=== PATIENT | female | born 1985 | race Caucasian/White ===

== ENCOUNTER 2016-08-21 15:30 | Inpatient (IN) | payer MEDICAID ==
[~2016-08-21] VITALS: Ht 172.7 cm; Wt 79.4 kg
--- NOTE | ~2016-08-21 | OR ---
ADMIT: 08/21/2016 RM/LOC: 228 [facility] MR#: [id number] [address] OSMEL BROCK [address] [place] [address] Operative/Delivery Room Report SEX: F AGE: 30 : 1985 SURGERY DATE: 08/22/2016 SURGEON: Lisbeth Mtz MD PROCEDURE: Spontaneous vaginal delivery. PREOPERATIVE DIAGNOSES: 1. Intrauterine at 37 and 0/7th weeks' gestation. 2. Active labor. POSTOP DIAGNOSES: 1. Intrauterine at 37 and 0/7th weeks' gestation. 2. Active labor. FINDINGS: Liveborn male infant, scores 8 at 1 minute, 9 at 5 minutes. Weight 6 pounds 10 ounces. ESTIMATED BLOOD LOSS: 150 mL. ANESTHESIA: Epidural. COMPLICATIONS: None. INDICATIONS FOR PROCEDURE: The patient is, 2, para 0-1-0-1 who presented to Labor and Delivery at 37 and 0/7th weeks' gestation with complaints of contractions. The patient progressed spontaneously through labor to 8 cm dilated. At that point, no further cervical dilation was noted and so Pitocin augmentation of labor was started. The patient then progressed, 9 cm dilated. Artificial rupture of membranes was performed. The patient progressed to completely dilated and pushed, bringing the infant's vertex to the perineum. DESCRIPTION OF PROCEDURE: The patient was noted to be complete and pushing with the infant's vertex at the perineum. The patient pushed and the 's vertex delivered in the LARISSA position over midline. She continued to push and ADMIT: 08/21/2016 RM/LOC: 228 [facility] MR#: [id number] [address] OSMEL BROCK [address] [place] [address] Operative/Delivery Room Report SEX: F AGE: 30 : 1985 the anterior shoulder delivered. The posterior shoulder followed, and the remainder of the delivered without difficulty as well. The infant was dried and handed off to the mother's abdomen where nursing personnel were in attendance. The cord was clamped and cut. There was noted to be a true knot in the umbilical cord. The placenta then delivered intact spontaneously. Twenty units of Pitocin have been placed in IV bag to firm the uterus. The cervix was examined was noted be free of lacerations. The vaginal vault and perineum were examined, there was noted to be a small first degree midline laceration, which was repaired with [id number] stitch of 3-0 Vicryl. The patient tolerated the procedure well. All sponge and needle counts were correct. The patient and her infant recovered in the room in stable condition. Lisbeth Mtz MD/ tiffanie JOB #: [id number] CC: Lisbeth Mtz, Attending Physician Marbin Davis, Family Physician
--- NOTE | ~2016-08-21 | FD ---
ADMIT: 08/21/2016 RM/LOC: 228 [facility] MR#: [id number] [facility] [address] [place] [id number] OSMEL BROCK [address] [place] [address] Final Diagnosis SEX: F AGE: 30 : 1985 ADMISSION DATE: 08/21/2016 DISCHARGE DATE: 08/23/2016 FINAL DIAGNOSIS: Intrauterine at term. PROCEDURE: Spontaneous vaginal delivery. Lisbeth Mtz MD/ carlotta JOB #: [id number] CC: Lisbeth Mtz MD, Attending Physician Marbin Davis MD, Family Physician
[2016-08-24] MEDS ORDERED: PRENATAL VIT1 TAB PO (06:42)
[2016-08-24] MEDS ORDERED: MOTRIN-DPS800 MG PO (06:42)
[2016-08-24] MEDS ORDERED: NIPPLECREAM TP (06:42)
[2016-08-24] MEDS ORDERED: TYLENOL #3 DPS1 TAB PO (06:42)
--- NOTE | 2016-09-25 09:05 | HP ---
ADMIT: 08/21/2016 RM/LOC: 228 [facility] MR#: [id number] [facility] [address] [place], [place] [address] OSMEL BROCK [address] [place], [place] [id number] History and Physical SEX: F AGE: 30 : 1985 DATE OF SERVICE: CHIEF COMPLAINT: Uterine contractions. HISTORY OF PRESENT ILLNESS: The patient is a 30-year-old, G2, P 0-1-0-1, at 37 weeks and 0 days today, the patient presents to Labor and Delivery for complaints of regular contractions. She denies any loss of fluid or vaginal bleeding. She reports good movement. She does have a history of a delivery at 36 weeks and also mentions as a very quick delivery like around 4 to 5 hours. PAST MEDICAL HISTORY: History of delivery at 36 weeks. She also has a low-lying placenta, and she has also had some significant nausea throughout the . PAST SURGICAL HISTORY: Tonsillectomy and wisdom teeth removal. MEDICATIONS: Include: 1. vitamins. 2. Diclegis. ALLERGIES: NONE. FAMILY HISTORY: COPD, asthma, diabetes, and hypertension. SOCIAL HISTORY: She is . No alcohol. No drugs. She is a former smoker. REVIEW OF SYSTEMS: Positive again for the uterine contractions, negative for loss of fluid, vaginal bleeding, and she does report good movement, otherwise. LABS: Diabetic screen was within normal limits. Hepatitis B surface antigen is negative. RPR was nonreactive. Rubella was immune. A positive for blood type. Gonorrhea and Chlamydia negative. HIV was negative. GBS was negative. PHYSICAL EXAMINATION: VITAL SIGNS: Blood pressure is 129/84 with a pulse of 98 to 100. heart tones showed a heart rate of 120s, moderate variability, positive accelerations, no decelerations. Contractions are every 6 to 8 minutes currently. GENERAL: No acute distress. Alert and oriented x3. She is very pleasant. HEENT: Normocephalic and atraumatic. Moist mucous membranes. Extraocular ADMIT: 08/21/2016 RM/LOC: 228 [facility] MR#: [id number] [address] OSMEL BROCK [address] [place] [address] History and Physical SEX: F AGE: 30 : 1985 muscles are intact. Thyroid is nonpalpable. HEART: Regular rate and rhythm. No murmur. LUNGS: Clear to auscultation bilaterally. ABDOMEN: Soft, gravid. NEURO: Cranial nerves II through XII are grossly intact. : Initial check was 4, 80, 0, and membranes are intact. Most recent check shows the patient to be 5, 100, and 0. ASSESSMENT AND PLAN: A 2, para 1 at 37 weeks and 0 days. We will admit the patient to Labor and Delivery. We will augment labor with artificial rupture of membranes. Pitocin as needed. Fetus is overall reassuring. This is a patient of Dr. Mtz. Annamaria Rebolledo MD Resident / Lisbeth Mtz MD / marianol JOB #: [id number] CC: Lisbeth Mtz, Attending Physician Marbin Davis, Family Physician
--- NOTE | 2016-09-25 09:05 | OR ---
ADMIT: 08/21/2016 RM/LOC: 228 [facility] MR#: [id number] [address] OSMEL BROCK [address] [place] [address] Operative/Delivery Room Report SEX: F AGE: 30 : 1985 SURGERY DATE: 08/22/2016 SURGEON: Lisbeth Mtz MD PROCEDURE: Removal of epidural catheter. PROCEDURE IN DETAIL: The patient is a 30-year-old, 2, para 0-1-0-1, who presented to Labor and Delivery at 37 and 0/7th weeks' gestation in active labor. The patient had an epidural placed for pain control during labor. Following spontaneous vaginal delivery, the patient was placed in a sitting position and the patient's epidural catheter was removed without difficulty. The tip was noted to be intact. The patient tolerated the procedure well. Lisbeth Mtz MD/ tiffanie JOB #: [id number] CC: Lisbeth Mtz, Attending Physician Marbin Davis, Family Physician
== END 2016-08-23 12:40 | disposition home or self-care (01) | DRG 775 ==
LOC: BC 15:30 → 2LDRP 15:30 → BC 15:31 → 2LDRP 15:31 → BC 09-11 08:00
PROVIDERS: ADMIT Obstetrics & Gynecology
PROC: 10E0XZZ Delivery of Products of Conception, External Approach (ICD-10-PCS; principal; 2016-08-22)
PROC: 10907ZC Drainage of Amniotic Fluid, Therapeutic from Products of Conception, Via Natural or Artificial Opening (ICD-10-PCS; principal; 2016-08-22)
PROC: 0HQ9XZZ Repair Perineum Skin, External Approach (ICD-10-PCS; principal; 2016-08-22)
DX: O69.2XX0 Labor and delivery complicated by other cord entanglement, with compression, not applicable or unspecified (principal); O70.0 First degree perineal laceration during delivery; Z3A.37 37 weeks gestation of pregnancy; Z37.0 Single live birth